=== PATIENT | female | born 1980 | race Caucasian/White ===

== ENCOUNTER 2021-03-14 17:36 | Outpatient (REF) | payer SELFPAY ==
[2021-03-18 10:19] LABS: HBs Antibody, Quant 41.8 mIU/mL (See Note); Hepatitis B Surface Ab Positive (See Note)
[2021-03-18 11:21] LABS: Varicella IgG Antibody Positive (See Note)
[2021-03-18 11:25] LABS: Measles IgG Antibody Negative (See Note); Mumps Antibody IgG Positive (See Note); Rubella IgG Ab (UVM) Positive (See Note)
== END 2021-03-14 17:37 | disposition home or self-care (01) ==
LOC: NCHCN 17:36
PROVIDERS: PCP Internal Medicine; Visit Provider Internal Medicine
DX: Z01.84 Encounter for antibody response examination (principal); Z11.59 Encounter for screening for other viral diseases
CPT/HCPCS: 86706; 86787; 86735; 86762; 86765

== ENCOUNTER → 2021-08-23 01:03 | Outpatient (CLI) | payer OTHER, SELFPAY ==
--- NOTE | 2021-08-23 12:35 | DI.MAMMO_ITS ---
Exam(s) MAMMO SCREENING EXAM: MAMMO SCREENING CLINICAL HISTORY: screening TECHNIQUE: Bilateral full field digital CC and MLO mammographic images were obtained with 3D tomosyn thesis and utilizing computer aided detection (CAD). COMPARISON: None. FINDINGS: Masses/Architectural Distortion: None seen. Microcalcifications: No suspicious pleomorphic-type are seen. Skin Thickening/Nipple Retraction: None. IMPRESSION: 1. No significant interval change with no specific features of malignancy noted. 2. Unless there is more urgent need, screening mammography is recommended, as per [employer] guidelines. BI-RADS Category 1 - Negative Breast Density - Category B - Scattered areas of fibroglandular density Breast density category C or D implies that the patient has dense breast tissue. Dense breast tissue is very common and is not abnormal but dense breast tissue can make it harder to find cancer on a ma mmogram. Also, dense breast tissue may increase their breast cancer risk. This information about the result of the mammogram report was provided to the patient to raise their awareness. Use this report when you speak with the patient about their risks for breast cancer, which includes their family hist ory. At that time, you may recommend for more screening tests (Ultrasound or MRI) as they might be us eful based on their risk. A negative radiographic report should not delay biopsy if a dominant or clinically suspicious mass is present. Up to ten percent of cancers are not identified on mammography. A negative report may reinforce clinical impression. Adenosis and dense breasts may obscure an underlying neoplasm. False positive reports average 6 to 10%. Patient will receive a letter notifying them of these results.
== END ==
PROVIDERS: PCP Internal Medicine; Visit Provider Nurse Practitioner Women's Health
DX: Z12.31 Encounter for screening mammogram for malignant neoplasm of breast (principal); Z80.3 Family history of malignant neoplasm of breast
CPT/HCPCS: 77063; 77067

== ENCOUNTER 2022-07-28 15:31 | Outpatient (REF) | payer OTHER, SELFPAY ==
[2022-07-28 20:40] LABS: Hemoglobin A1C 5.8 % (<5.7)
[2022-07-28 20:41] LABS: ALT 22 U/L (14-59); AST 10 U/L (15-37); Albumin 3.9 g/dL (3.4-5.0); Anion Gap 10.6 mmol/L (3-11); BUN 13 mg/dL (7-18); Bilirubin, Total 0.4 mg/dL (0.2-1.0); CO2 23.4 mmol/L (21.0-32.0); Calcium 8.9 mg/dL (8.5-10.1); Chloride 104 mmol/L (98-107); Estimated GFR 73.49 (mL/min/1.73m2); Glucose 91 mg/dL (74-106); Potassium 4.4 mmol/L (3.5-5.1); Sodium 138 mmol/L (136-145); TSH (W/Ref FT4) 3.09 uIU/mL (0.36-3.74); Total Protein 7.8 g/dL (6.4-8.2)
[2022-07-28 20:50] LABS: Alkaline Phosphatase 81 U/L (46-116)
== END 2022-07-28 15:32 | disposition home or self-care (01) ==
LOC: NCHCN 15:31
PROVIDERS: PCP Internal Medicine; Visit Provider Nurse Practitioner Family
DX: E66.9 Obesity, unspecified (principal); Z86.39 Personal history of other endocrine, nutritional and metabolic disease
CPT/HCPCS: 80053; 83036; 84443

== ENCOUNTER 2022-09-20 15:40 | Emergency (ER) | payer OTHER, SELFPAY ==
[2022-09-20 15:52] VITALS: PULSE 97; RESP 18; O2SAT 99
[2022-09-20 15:56] VITALS: BP 131/102; TEMP 36.8
--- NOTE | 2022-09-20 16:00 | DI.CT_ITS ---
Exam(s) CT ABDOMEN PELVIS W EXAM: CT ABDOMEN PELVIS W CLINICAL HISTORY: diarrhea, persistent abdominal pain. TECHNIQUE: Imaging Protocol: Axial computed tomography images with coronal and sagittal reformatted images were created and reviewed CONTRAST MATERIAL: Intravenous: Omnipaque-350 100cc Oral: None COMPARISON: No exams were available for comparison FINDINGS: VISUALIZED LUNG BASES: No nodules nor pleural effusions evident. ABDOMEN: There is no ascites. There is a diffuse enteritis pattern with fluid-filled upper normal diameter sm all and large bowel loops and no evidence of true bowel obstruction, free air, nor abscess. Multiple small lymph nodes noted in the mesentery. LIVER: There are no focal hepatic lesions evident. No dilated intrahepatic ducts. GALLBLADDER/BILIARY: No obvious gallbladder pathology. CBD is not dilated. PANCREAS: No evidence of pancreatic mass nor dilatation of the pancreatic duct. SPLEEN: Spleen is not enlarged. No obvious intrasplenic lesions. Splenic and portal veins are paten t. ADRENALS: There are no significant adrenal masses. KIDNEYS:No cysts evident. No solid renal masses. No calculi nor hydronephrosis.. ABDOMINAL AORTA: Abdominal aorta is not enlarged. LYMPH NODES:There is no retroperitoneal nor paraaortic adenopathy. ABDOMINAL WALL: No evidence of significant anterior abdominal wall nor inguinal hernia. GI: As above PELVIS: GI: No evidence of appendicitis.No evidence of sigmoid diverticulitis. LYMPH NODES: There is no intrapelvic nor inguinal adenopathy. REPRODUCTIVE: Uterus size normal. Right ovary unremarkable. There is a corpus luteum cyst in the le ft ovary measuring 2 x 1.8 cm. URINARY BLADDER: No calculi nor obvious masses evident OSSEOUS: No fractures and no significant osseous lesions. IMPRESSION: 1. There is a diffuse enteritis pattern. No evidence of true bowel obstruction. No free air. No ab scess. RADIATION DOSE DELIVERED: 1,505.42mGy.cm Total DLP DATA REPOSITORY: All CT scans at this facility are submitted to the National Radiology Data Registry (NRDR) Dose Index Registry (DIR) with the [employer] (ACR). RADIATION OPTIMIZATION: All CT scans at this facility use at least one of these dose optimization te chniques: automated exposure control; mA and/or kV adjustment per patient size (includes targeted exa ms where dose is matched to clinical indication); or iterative reconstruction.
--- NOTE | 2022-09-20 16:04 | ED.GENADUL_ITS ---
Discharge Plan Disposition Patient Disposition: Home Condition: Good Discharge Details Clinical Impression: Gastroenteritis Primary Care Provider: Adolfo Smalls ED Provider: Adolfo Warren [place] Meds and New Rx's Prescriptions: New prochlorperazine maleate 10 mg tablet 10 mg PO Q8H PRNQty: 10 0RF famotidine 40 mg tablet 40 mg PO DAILY Qty: 10 0RF Continued albuterol sulfate [ProAir HFA] 200 PUFF HFA aerosol inhaler 200 puff Inhalation PRN Wegovy 0.25 mg/0.5 mL pen injector See Rx Instructions .ROUTE .COMPLEX Patient Comments: Inject 0.25 mg subcutaneously once a week for 4 weeks then dose increase to 0.5 mg pen and use once weekly Rx Instructions: Inject 0.25 mg subcutaneously once a week for 4 weeks then dose increase to 0.5 mg pen and use once weekly Discharge Instructions Instructions: Gastroenteritis (ED) Additional Instructions: You were evaluated in the ED for nausea, abdominal discomfort, diarrhea. Work- up is reassuring including unremarkable laboratory studies and CT scan which shows evidence of enteritis. Would stick with a clear liquid/bland diet over the next few days. You may take prochlorperazine and famotidine for nausea and abdominal discomfort. Follow-up with primary care next week if not improving. Return to ED for high fever, worsening abdominal pain, persistent vomiting, bloody diarrhea, other concerns. Medical Decision Making Patient presenting with persistent upper abdominal pain, nausea but no vomiting, diarrhea. Symptoms ongoing for 2 to 3 days now. She reports no fever. Her exam is relatively benign with minimal epigastric tenderness. IV placed laboratory studies obtained. Prochlorperazine and famotidine given. Fluids started. CT of abdomen pelvis ordered given report of persistent upper abdominal pain. Laboratory studies significant for white count of 14.2 with normal hemoglobin. Chemistries mostly unremarkable. Bicarb a little low with a slight anion gap. Kidney function, liver function, lipase are all normal. CT scan per radiology wet read consistent with enteritis but no evidence of obstruction, colitis. Patient better after fluids and medications. We will plan discharge with prescriptions for prochlorperazine and famotidine as it seemed to help with her discomfort though symptoms are likely related to a viral gastroenteritis. Clear liquid/bland diet for the next few days. Follow-up primary care next week if not improving. Return precautions provided. Lab Data Lab results reviewed: Yes I reviewed the patient's lab results. HPI General Mode of arrival: ambulatory . Date/Time Provider Initiated Documentation: 09/20/22 15:55 . Limitations to Documentation: no limitations . Information obtained by: patient . HPI Narrative: Patient presents to ED with upper abdominal pain, bloating, discomfort and diarrhea for the last 2 to 3 days. She did have couple episodes of vomiting 2 days ago but none since. She is able to drink but has no appetite and is not really eating. Denies any fever. Denies any bloody diarrhea. Does describe it as watery and yellow. No travel outside [place], eating or drinking contaminated food or water, sick contacts. She denies any back pain, chest pain, shortness of breath. Related Data Home Medications Medication Instructions Recorded Confirmed albuterol sulfate 90 mcg/actuation 200 puff inhalation PRN 12/29/13 09/20/22 aerosol inhaler (ProAir HFA) famotidine 40 mg tablet 40 mg PO DAILY #10 tabs 09/20/22 prochlorperazine maleate 10 mg 10 mg PO Q8H PRN #10 tabs 09/20/22 tablet semaglutide (weight loss) 0.25 See Rx Instructions .Route .COMPLEX 09/20/22 09/20/22 mg/0.5 mL subcutaneous pen injector (Dave) Previous Rx's Medication Instructions Recorded famotidine 40 mg tablet 40 mg PO DAILY #10 tabs 09/20/22 prochlorperazine maleate 10 mg 10 mg PO Q8H PRN #10 tabs 09/20/22 tablet Allergies Allergy/AdvReac Type Severity Reaction Status Date / Time No Known Drug Allergies Allergy Unverified 09/20/22 15:55 General Stated Complaint: Abd Prob LAUREN: 3 Review of Systems Narrative: Per HPI PFSH All Active Problems (Updated 09/20/22 @ 18:18 by Adolfo Warren MD) Gastroenteritis (Acute) FH: breast cancer in first degree relative when <50 years old (Acute) Medical History (Updated 09/20/22 @ 18:18 by Adolfo Warren MD) Asthma Cystocele with rectocele Gestational hypertension Obesity (06/13/13) Thyroid condition Family History Mother Breast cancer BRCA1 positive Other Alcohol abuse Hyperlipidemia Hypertension Myocardial infarction Stroke Social History Smoking/Tobacco Use Status: Never Smoking risk assessment performed?: Yes Alcohol Intake: never Substance use type: does not use Do you feel safe in your relationship?: Yes Female Reproductive History Menstrual control method: none History History 5 Para 3 Hx # Term Pregnancies 3 Multiple births Hx # Pregnancies Ectopic pregnancies AB induced Hx Number of Living Children 3 AB spontaneous Exam Narrative Exam Narrative: Const: Obese female in NAD. HEENT: NC/AT. Normal facial exam. Eyes: Normal conjunctiva and sclera. Neck: Supple. Trachea midline. Lungs: Normal respiratory effort. Lungs are clear. Cor: RRR without murmur/gallop. Good radial pulses. GI: Soft. NT/ND. No guarding or rebound. Neuro: A+O x 3. Normal speech, mentation, gait. Cranial nerves II - XII grossly intact. No gross motor or sensory deficit. Ext: No C/C/E. Skin: Warm and dry without rash. Course Vital Signs Vital signs: Vital Signs Pulse 97 H 09/20/22 15:52 Respiratory Rate 18 09/20/22 15:52 Pulse Oximetry 99 09/20/22 15:52 Temperature 98.2 F 09/20/22 15:56 Temperature Source Oral 09/20/22 15:56 Pulse 97 H 09/20/22 15:52 Respiratory Rate 18 09/20/22 15:52 Respiratory Effort Normal, Non-Labored 09/20/22 15:55 Blood Pressure 131/102 H 09/20/22 15:56 Pulse Oximetry 99 09/20/22 15:52 Oxygen Delivery Method Room Air 09/20/22 15:52 Oxygen Flow Rate 0 09/20/22 15:52
[2022-09-20] MEDS: Omnipaque 350 MG/ML 100 ML BTL IJ (16:28)
[2022-09-20] MEDS: Normal Saline - Diluent 50 ML VIAL IJ (16:29)
[2022-09-20] MEDS: Prochlorperazine 10 MG/2 ML VIAL IVP (16:40)
[2022-09-20] MEDS: FAMOTIDINE 20 MG in Normal Saline 100 ML 400 MG IVPB (16:40)
[2022-09-20] MEDS: Normal Saline 1,000 ML 1000 ML IV (16:40)
[2022-09-20] MEDS: Normal Saline 50 ML 400 ML (16:41)
[2022-09-20 16:45] LABS: Abs Immature Grans 0.05 10^3/uL (0.0-0.06); Absolute Basophil Count 0.04 10^3/uL (0.0-0.2); Absolute Eosinophil Count 0.06 10^3/uL (0.0-0.7); Basophils % 0.3; Eosinophils % 0.4; HCT 41.3 % (36.0-46.0); Immature Grans % 0.4; Lymphocytes % 16.3; MCH 25.5 pg (27.0-33.0); MCHC 31.5 % (32.0-36.0); MCV 81 fL (80-95); MPV 9.7 fL (8.0-11.0); Monocytes % 6.1; Neutrophils % 76.5; Platelet Count 454 10^3/uL (130-400); RDW 15.7 % (11.7-14.6); RDW-SD 46.6 fL
[2022-09-20 16:46] LABS: Absolute Lymphocyte Count 2.31 10^3/uL (1.2-3.4); Absolute Monocyte Count 0.87 10^3/uL (0.1-0.8); Absolute Neutrophil Count 10.86 10^3/uL (1.2-6.7)
[2022-09-20 16:55] LABS: ALT 30 U/L (14-59); AST 18 U/L (15-37); Albumin 3.6 g/dL (3.4-5.0); Alkaline Phosphatase 76 U/L (46-116); Anion Gap 12.6 mmol/L (3-11); BUN 17 mg/dL (7-18); Bilirubin, Total 0.8 mg/dL (0.2-1.0); CO2 20.4 mmol/L (21.0-32.0); Calcium 8.7 mg/dL (8.5-10.1); Chloride 108 mmol/L (98-107); Estimated GFR 73.49 (mL/min/1.73m2); Glucose 102 mg/dL (74-106); Lipase 28 U/L (16-77); Magnesium 2.2 mg/dL (1.8-2.4); Potassium 3.9 mmol/L (3.5-5.1); Sodium 141 mmol/L (136-145); Total Protein 8.1 g/dL (6.4-8.2)
--- NOTE | 2022-09-20 18:09 | DI.VRAD_ITS ---
PROCEDURE INFORMATION: Exam: CT Abdomen And Pelvis With Contrast Exam date and time: 09/20/2022 5:25 PM Age: 41 years old Clinical indication: Generalized; Patient HX: Diarrhea, persistent abdominal pain TECHNIQUE: Imaging protocol: Computed tomography of the abdomen and pelvis with contrast. COMPARISON: US OB ASSESSMENT - WEIGHT/REJI 07/28/2017 4:43 PM FINDINGS: Lungs: Lung bases are clear. Pleural spaces: No pleural effusion. Heart: Normal heart size. No pericardial effusion. No coronary artery atherosclerotic calcium is visible. Liver: Diffuse mild fatty liver infiltration. Gallbladder and bile ducts: The gallbladder is normal in size and shape. No stones or inflammatory changes. Pancreas: The pancreas is normal in contour and attenuation. Spleen: The spleen is normal in size, contour and attenuation. Adrenal glands: The adrenal glands are normal in size and contour bilaterally. Kidneys and ureters: The kidneys bilaterally are unremarkable. Normal attenutation. No hydronephrosis. No calculi. Stomach and bowel: Gastric morphology is unremarkable. No edema. No gastric outlet obstruction. Small bowel loops with fluid retention without obstructive features. No bowel edema or enhancement. Large bowel with diffuse liquified fecal contents. No colonic edema or masslike features. These findings are most consistent with an enteritis type process with associated diarrhea. Appendix: The appendix is visible and unremarkable. See coronal series 7, images 54 through 65. Intraperitoneal space: No free fluid. No free air. Vasculature: Unremarkable. No abdominal aortic aneurysm. Lymph nodes: Scattered mesenteric root multifocal subcentimeter lymph nodes which are consistent with an underlying enteritis process. Urinary bladder: Unremarkable as visualized. Reproductive: Uterus is unremarkable. A small left ovarian cyst incidentally noted measuring 19 x 15 mm. Bones/joints: No acute skeletal changes. Soft tissues: Unremarkable. IMPRESSION: Enteritis process. No amanda large or small bowel edema. No mechanical obstruction. Dictated and Authenticated by: Cesar Calvo MD. Ordering:PRESTON Mata MD
[2022-09-20 18:28] VITALS: BP 119/50; PULSE 75; RESP 16; O2SAT 97
== END 2022-09-20 18:33 | disposition home or self-care (01) ==
PROVIDERS: Emergency Provider Emergency Medicine; PCP Internal Medicine
DX: K52.9 Noninfective gastroenteritis and colitis, unspecified (principal); R19.7 Diarrhea, unspecified; R11.0 Nausea; R10.9 Unspecified abdominal pain
CPT/HCPCS: 36415; 80053; 83690; 96361; 96365; 96375; 99285; 74177; 83735; 85025; 99284; J0780; J3490

== ENCOUNTER → 2023-01-15 00:26 | Outpatient (CLI) | payer OTHER, SELFPAY ==
--- NOTE | 2023-01-15 13:00 | DI.MAMMO_ITS ---
Exam(s) MAMMO SCREENING EXAM: MAMMO SCREENING CLINICAL HISTORY: screening,z12.39 TECHNIQUE: Bilateral full field digital CC and MLO mammographic images were obtained with 3D tomosyn thesis and utilizing computer aided detection (CAD). COMPARISON: Available for comparison. FINDINGS: Masses/Architectural Distortion: There is a prominent area of increased density in the retroareolar r egion of the left breast on the MLO view. This may represent overlying fibroglandular tissue, but sp ot compression views requested for further evaluation. Microcalcifications: No suspicious pleomorphic-type are seen. Skin Thickening/Nipple Retraction: None. IMPRESSION: 1. Spot compression view of the retroareolar region of the left breast on the MLO view. 2. Ultrasound may be indicated at that time. BI-RADS Category 0 - Assessment Incomplete: Need additional imaging evaluation Breast Density - Category B - Scattered areas of fibroglandular density Breast density category C or D implies that the patient has dense breast tissue. Dense breast tissue is very common and is not abnormal but dense breast tissue can make it harder to find cancer on a ma mmogram. Also, dense breast tissue may increase their breast cancer risk. This information about the result of the mammogram report was provided to the patient to raise their awareness. Use this report when you speak with the patient about their risks for breast cancer, which includes their family hist ory. At that time, you may recommend for more screening tests (Ultrasound or MRI) as they might be us eful based on their risk. A negative radiographic report should not delay biopsy if a dominant or clinically suspicious mass is present. Up to ten percent of cancers are not identified on mammography. A negative report may reinforce clinical impression. Adenosis and dense breasts may obscure an underlying neoplasm. False positive reports average 6 to 10%. Patient will receive a letter notifying them of these results.
== END ==
PROVIDERS: PCP Internal Medicine; Visit Provider Nurse Practitioner Women's Health
DX: Z12.31 Encounter for screening mammogram for malignant neoplasm of breast (principal)
CPT/HCPCS: 77063; 77067

== ENCOUNTER 2023-01-21 11:18 | Outpatient (REF) | payer OTHER, SELFPAY ==
--- NOTE | 2023-01-21 10:40 | PAPFT_PTH ---
PATIENT: Mireille Mosquera LOC: [facility] U#:[id number] AGE/SX: 42/F ROOM: RE01/21/[address]: Dona Cobos NP : 1980 BED: DIS: 01/21/2023 SPEC #: [id number] RECD: 01/21/23 12:58 STATUS: WESLY REQ #: [id number] AHSAN: 01/21/23 10:[address]: Papito TRAMMELL,Dona DEPT: [facility] Cytology RECD BY: Angi Schulte ENTERED: 01/21/23 12:58 SP TYPE: PAPFT OTHR DR: Adolfo Smalls Tissues: 1 - CX/ENDOCX FOR PAP SMEARS Procedures: PAP THIN PREP/UVM Screening HPV DNA PROBE Comments: [id number]
== END 2023-01-21 11:19 | disposition home or self-care (01) ==
LOC: LBN 11:18
PROVIDERS: PCP Internal Medicine; Visit Provider Nurse Practitioner Women's Health
DX: Z12.4 Encounter for screening for malignant neoplasm of cervix (principal); Z11.51 Encounter for screening for human papillomavirus (HPV)
CPT/HCPCS: 88142; 87624

== ENCOUNTER 2023-01-22 01:51 | Outpatient (CLI) | payer OTHER, SELFPAY ==
--- NOTE | 2023-01-22 | DI.US_ITS ---
Exam(s) MG MAMMO SCREEN CALL BACK UNI US BREAST LT COMPLETE EXAM: MG MAMMO SCREEN CALL BACK UNI and U/S left LT complete CLINICAL HISTORY: PROMINENT AREA OF INCREASED DENSITY, RETROAREOLAR, LT BREAST. TECHNIQUE: Craniocaudal and mediolateral oblique Full Field Digital Mammography views of the left br east with Computer Aided Diagnosis followed by Tomosynthesis and left breast ultrasound. COMPARISON: Comparison is made with prior examinations. FINDINGS: Mammography/Tomosynthesis: Masses/Architectural Distortion: The area is less concerning on the additional views. No suspicious masses or areas of architectural distortion are seen. Microcalcifictions: No suspicious pleomorphic-type are seen. Skin Thickening/Nipple Retraction: None. Complete left breast US: Echotexture: Normal appearance of the glandular tissue. Shadowing: No suspicious foci. Cyst: There is a 0.6 x 0.3 x 0.3 cm cyst at the 6 o'clock position of the left breast 2 cm from the n ipple. Solid lesions: None seen. Ductal dilation: None. IMPRESSION: 1. No evidence of malignancy is noted. 2. Unless there is more urgent need, follow-up screening mammography is recommended, as per [employer] guidelines. 3. The findings were discussed with the patient on the date of the examination. BI-RADS Category 2 - Benign Findings Breast Density - Category B - Scattered areas of fibroglandular density Breast density Category C or D implies that the patient has dense breast tissue. Dense breast tissue can make it harder to find cancer on a mammogram. Dense breast tissue is also associated with an incr eased risk of breast cancer. This information about the result of the mammogram report was provided to the patient to raise their awareness. Use this report when you speak with the patient about their risks for breast cancer, which includes their family history. At that time, you may recommend additional screening tests (Ultrasoun d or MRI) as these tests may add significant information. A negative radiographic report should not delay biopsy if a dominant or clinically suspicious mass is present. Up to ten percent of cancers are not identified on mammography. A negative report may reinforce clinical impression. Adenosis and dense breasts may obscure an underlying neoplasm. False positive reports average 6 to 10%. Patient will receive a letter notifying them of these results.
== END 2023-01-22 02:11 ==
PROVIDERS: PCP Internal Medicine; Visit Provider Nurse Practitioner Women's Health
DX: Z12.31 Encounter for screening mammogram for malignant neoplasm of breast (principal); R92.8 Other abnormal and inconclusive findings on diagnostic imaging of breast
CPT/HCPCS: 76642; 77063; 77067

== ENCOUNTER 2023-01-22 13:19 | Outpatient (CLI) | payer OTHER, SELFPAY ==
[2023-01-27 11:48] LABS: TB Interpretation Negative (Negative)
== END 2023-01-22 13:20 | disposition home or self-care (01) ==
LOC: LBO 13:20
PROVIDERS: PCP Internal Medicine; Visit Provider Nurse Practitioner Family
DX: Z02.1 Encounter for pre-employment examination (principal)
CPT/HCPCS: 36415; 86480

== ENCOUNTER 2023-07-08 22:02 | Outpatient (REF) | payer OTHER, SELFPAY | END 2023-07-08 22:03 | disposition home or self-care (01) | LOC: LBN 22:02 | PROVIDERS: PCP Internal Medicine; Visit Provider Nurse Practitioner Family | DX: J02.9 Acute pharyngitis, unspecified (principal) | CPT/HCPCS: 87070 ==

== ENCOUNTER 2024-01-29 11:38 | Outpatient (CLI) | payer OTHER, SELFPAY ==
[2024-01-29 11:23] LABS: ALT 13 U/L (14-59); AST 8 U/L (15-37); Albumin 3.8 g/dL (3.4-5.0); Alkaline Phosphatase 64 U/L (46-116); Anion Gap 9.6 mmol/L (3-11); BUN 17 mg/dL (7-18); CO2 24.4 mmol/L (21.0-32.0); Calcium 9.3 mg/dL (8.5-10.1); Chloride 108 mmol/L (98-107); Estimated GFR 72.58 (mL/min/1.73m2); Glucose 92 mg/dL (74-106); Potassium 4.1 mmol/L (3.5-5.1); Sodium 142 mmol/L (136-145); Total Protein 8.1 g/dL (6.4-8.2)
[2024-01-29 18:47] LABS: Calculated LDL 107 mg/dL (<100); Cholesterol 167 mg/dL (<200); HDL Cholesterol 41 mg/dL (40-60); TSH 2.66 uIU/mL (0.36-3.74); Triglyceride 95 mg/dL (<150)
== END 2024-01-29 11:39 | disposition home or self-care (01) ==
LOC: LBO 11:44
PROVIDERS: PCP Nurse Practitioner Family; Visit Provider Nurse Practitioner Family
DX: E66.9 Obesity, unspecified (principal)
CPT/HCPCS: 36415; 80053; 80061; 84443

== ENCOUNTER 2024-02-16 01:43 | Outpatient (CLI) | payer OTHER, SELFPAY ==
--- NOTE | 2024-02-16 15:00 | DI.MAMMO_ITS ---
Exam(s) MAMMO SCREENING EXAM: MAMMO SCREENING CLINICAL HISTORY: screening TECHNIQUE: Mammograms were interpreted according to the usual protocol including computer analysis w [employer] CAD system, tomosynthesis and C-view imaging. COMPARISON: 2021 and 2022 FINDINGS: The breasts are composed of scattered fibroglandular densities, Breast Density category B. No suspicious masses or suspicious microcalcifications are seen. No skin thickening or abnormal axillary lymph nodes are seen. There has been no significant change from prior exams. IMPRESSION: BI-RADS Category 1, Negative mammogram Yearly screening mammography is recommended. Breast Density - Category B, scattered fibroglandular densities. A negative radiographic report should not delay biopsy if a dominant or clinically suspicious mass is present. Up to ten percent of cancers are not identified on mammography. A negative report may reinforce clinical impression. Adenosis and dense breasts may obscure an underlying neoplasm. False positive reports average 6 to 10%. Patient will receive a letter notifying them of these results.
== END 2024-02-16 02:03 ==
LOC: DI 01:43
PROVIDERS: PCP Nurse Practitioner Family; Visit Provider Nurse Practitioner Women's Health
DX: Z12.31 Encounter for screening mammogram for malignant neoplasm of breast (principal); R92.323 Mammographic fibroglandular density, bilateral breasts
CPT/HCPCS: 77063; 77067

== ENCOUNTER 2024-02-16 15:22 | Outpatient (CLI) | payer OTHER, SELFPAY ==
[2024-02-16 15:29] LABS: HCT 38.7 % (36.0-46.0); HGB 11.9 g/dL (11.2-15.7); MCH 25.3 pg (27.0-33.0); MCHC 30.7 % (32.0-36.0); MCV 82 fL (80-95); MPV 9.6 fL (8.0-11.0); Platelet Count 431 10^3/uL (130-400); RBC 4.71 10^6/uL (3.93-5.22); RDW 15.6 % (11.7-14.6); RDW-SD 47.1 fL; WBC 12.88 10^3/uL (4.4-10.8)
== END 2024-02-16 15:23 | disposition home or self-care (01) ==
LOC: LBO 15:22
PROVIDERS: PCP Nurse Practitioner Family; Visit Provider Nurse Practitioner Family
DX: E66.9 Obesity, unspecified (principal)
CPT/HCPCS: 36415; 85027

== ENCOUNTER → 2025-02-02 08:16 | Outpatient (CLI) | payer OTHER, SELFPAY ==
--- NOTE | 2025-02-02 | DI.RAD_ITS ---
Exam(s) RF MODIFIED SPEECH BA SWALLOW TECHNIQUE: Modified barium swallow was performed in conjunction with speech pathology. CONTRAST MATERIAL: Oral barium Oral water soluble contrast was administered. COMPARISON: No exams were available for comparison FINDINGS: Fluoroscopy was provided by the radiologist for modified barium swallow study performed our department in conjunction with the speech therapist. The radiologist was present in the fluoroscopy suite for this entire procedure. See speech therapist report IMPRESSION: No evidence of aspiration See separate speech therapist report RADIATION DOSE DELIVERED: nino Hernandez=4.40 mGy
--- NOTE | 2025-02-02 09:04 | ST.MBS_ITS ---
Date of Service Date of service: 02/02/25 Time of Service: 10:00 Modified Barium Swallow Study Findings: Video fluoroscopic Swallowing Evaluation (VFSE) / Modified Barium Swallow Study (MBSS) Speech Language Pathology Report Patient referred for VFSE/MBSS from Dr. De Hobson given symptoms of food sticking. HPI & Patient report of function: Patient is a 44 year old female presenting with complaint of food sticking in upper sternal region. This mostly occurs with rice or meat. In some instances she has had to induce vomiting to clear the sticking sensation. Symptoms have been ongoing for a couple of years though worsening, now occurring a couple times a week, mostly with dinner. She denies issues with reflux, swallowing pills, or swallowing liquids. Pertinent medical history: Currently on Zepbound (GLP-1) since June 2024 IMPRESSIONS: Oral pharyngeal swallow function is well within normal limits. Esophageal screening is unremarkable. Anticipate symptoms are consistent with esophageal spasm. Recommended avoiding iced cold/carbonated drinks with meals (as these can induce spasm) and instead having at least 2-4 ounces of a warm liquid (herbal tea or warm water with lemon or kalispel) to support esophageal motility/clearance. Further recommended increased chewing, until food is liquid applesauce, prior to swallowing. If strategies do not improve symptoms, consider endoscopy for further workup. No further TYPEWRITERS FUNCTIONAL TESTER needs identified. RECOMMENDATIONS: Diet Texture Recommendation: IDDSI LEVEL SOLIDS 7-Regular Solids LIQUIDS 0-Thin Liquids MEDICATIONS As tolerated Risk Management Strategies: Upright for all PO and at least 90 min after Small/slow bites and sips Chew food well until applesauce consistency before swallowing Avoid iced/carbonated drinks with meals Instead, sip on warm water, herbal tea, or hot water with squeeze of lemon or kalispel before/with a meal PLAN: Evaluation only OBJECTIVE Videofluoroscopic Swallow Evaluation (VFSE/MBSS) was conducted in the lateral and [id number] projection by Speech-Language Pathologist, in collaboration with Radiologist, to evaluate oropharyngeal swallow function. Anatomic view under fluoroscopy: WFL PO Barium Contrast Trials Oral barium water-soluble contrast was administered as follows: IDDSI Level 0 Varibar thin liquid (40% w/v) IDDSI Level 2 Varibar nectar thick/mildly thick liquid (40% w/v) IDDSI Level 4 Varibar pudding/pureed/extremely thick (40% w/v) IDDSI Level 7 Regular Solid: 1/2 pilo cracker coated in 3 mL Varibar pudding MBSImP Component Scores: COMPONENT Scale SCORE 1 Lip closure (0-4) 0 Resulted in no labial escape 2 Hold Position (0-3) 0 Maintained a cohesive bolus between tongue to palatal seal 3 Bolus Preparation (0-4) 0 Resulted in timely and efficient chewing and mashi ng 4 Bolus Transport (0-4) 0 Was with brisk tongue motion 5 Oral Residue (0-4) 0 Was not observed. There was complete oral clearance 6 Swallow Initiation (0-4) 2 Occurred as bolus head at posterior laryngeal surface of epiglottis 7 Soft Palate Elevation (0-4) 0 Resulted in no bolus between soft palate and t he pharyngeal wall 8 Laryngeal Elevation (0-3) 0 Demonstrated complete superior movement of thyro id cartilage with complete approximation of arytenoids to epiglottic petiole 9 Anterior Hyoid Motion (0-2) 0 Demonstrated complete anterior movement 10 Epiglottic Movement (0-2) 0 Resulted in complete inversion 11 Laryngeal Closure (0-2) 0 Was complete with no air or contrast in laryngeal vestibule 12 Pharyngeal Stripping Wave (0-2) 0 Was present and complete 13 Pharyngeal Contraction (0-3) 0 Was complete 14 PES Opening (0-3) 0 Was completely distended and complete duration with no obstruction of flow 15 Tongue Base Retraction (0-4) 0 Allowed no contrast between the tongue base and posterior pharyngeal wall 16 Pharyngeal Residue (0-4) 0 Was not present. There was complete pharyngeal clearance 17 Esophageal Clearance (0-4) 0 Was complete, with only a coating of contrast, if any Results: COMPONENT Scale SCORE 1 Oral Score (0-18) 2 2 Pharyngeal Score (0-29) 0 3 Esophageal Score (0-4) 0 Functional Oral Intake Scale: COMPONENT Scale SCORE 1 Pre-Study (1-7) 7 Total oral intake with no restrictions 2 Post-Study (1-7) 7 Total oral intake with no restrictions Penetration-Aspiration Scale: COMPONENT Scale SCORE 1 Thin liquid (1-8) 2 Contrast entered the airway, remained above the vocal folds, and was ejected from the airway. 2 [place] thick (1-8) NA 3 Honey thick (1-8) NA 4 Pudding thick (1-8) NA 5 Cookie (1-8) NA Thank you for allowing us to take part in this patient's care. Please feel free to contact the [facility] Speech Language Pathology Department with any questions/concerns.
[2025-02-02] MEDS: Barium Sulfate 81% w/w for Oral Suspension 148 GM BTL 40 GM PO (10:17)
[2025-02-02] MEDS: Barium Sulfate 40% W/V 240 ML BTL 40 ML PO (10:19)
[2025-02-02] MEDS: Barium Sulfate Oral Paste 40% W/V 230 ML TUBE 40 ML PO (10:19)
== END ==
LOC: DI 08:16
PROVIDERS: PCP Nurse Practitioner Family; Visit Provider Speech-Language Pathologist
DX: R13.10 Dysphagia, unspecified (principal)
CPT/HCPCS: 92526; 74221

== ENCOUNTER → 2025-03-06 03:53 | Outpatient (CLI) | payer OTHER, SELFPAY ==
--- NOTE | 2025-03-06 08:30 | DI.MAMMO_ITS ---
Exam(s) MAMMO SCREENING EXAM: MAMMO SCREENING CLINICAL HISTORY: screening. TECHNIQUE: Bilateral full field digital CC and MLO mammographic images were obtained with 3D tomosynthesis and utilizing computer aided detection (CAD). COMPARISON: Prior mammograms were reviewed. FINDINGS: There has been no significant change in the appearance and distribution of the fibroglandular tissue. There are no CAD designations. There are no new spiculated masses nor malignant appearing microcalcification groups. There is no significant architectural distortion nor skin thickening-retraction. IMPRESSION: No radiographic evidence of malignancy. BI-RADS Category 1 - Negative Breast Density - Category B - There are scattered areas of fibroglandular density. Breast density Category C or D implies that the patient has dense breast tissue. Dense breast tissue can make it harder to find cancer on a mammogram. Dense breast tissue is also associated with an increased risk of breast cancer. This information about the result of the mammogram report was provided to the patient to raise their awareness. Use this report when you speak with the patient about their risks for breast cancer, which includes their family history. At that time, you may recommend additional screening tests (Ultrasound or MRI) as these tests may add significant information. A negative radiographic report should not delay biopsy if a dominant or clinically suspicious mass is present. Up to ten percent of cancers are not identified on mammography. A negative report may reinforce clinical impression. Adenosis and dense breasts may obscure an underlying neoplasm. False positive reports average 6 to 10%. Patient will receive a letter notifying them of these results.
== END ==
PROVIDERS: PCP Nurse Practitioner Family; Visit Provider Nurse Practitioner Women's Health
DX: Z12.31 Encounter for screening mammogram for malignant neoplasm of breast (principal); R92.323 Mammographic fibroglandular density, bilateral breasts
CPT/HCPCS: 77063; 77067